=== PATIENT | female | born 1935 | race Caucasian/White ===

== ENCOUNTER 2018-03-02 18:37 | Inpatient (IN) | payer MEDICARE, BC ==
[~2018-03-02] VITALS: Ht 149.9 cm; Wt 50.8 kg
--- NOTE | 2018-03-02 18:54 | NUR ---
BIBRA FROM HOME DT RIGHT HIP PAIN RADIATING TO RIGHT KNEE, 4/10 SP TRIPPED AND FELL. PATIENT NOT IN DISTRESS. VSS
--- NOTE | 2018-03-02 20:27 | NUR ---
CALLED DR ORAL ELIZABETH ON THE PHONE WITH DR SINGER
--- NOTE | 2018-03-02 20:28 | NUR ---
CALLED [employer] ADMISSIONS DIRECTOR WAS PAGED.
[2018-03-02 20:54] LABS: BASOPHILS # (AUTO) 0.1 /CMM (0.0-0.2); BASOPHILS % (AUTO) 0.8 % (0.0-2.0); HEMATOCRIT 39 % (33-45); HEMOGLOBIN 13.1 g/dL (11.5-14.8); LYMPHOCYTES # (AUTO) 1.7 /CMM (0.8-4.8); LYMPHOCYTES % (AUTO) 17.6 % (20.0-44.0); MEAN CORPUSCULAR HGB CONC 34 g/dl (31.0-36.0); MEAN CORPUSCULAR VOLUME 86 fL (82-100); MONOCYTES # (AUTO) 0.7 /CMM (0.1-1.30); MONOCYTES % (AUTO) 6.9 % (2.0-12.0); NEUTROPHILS # (AUTO) 7.3 /CMM (1.8-8.9); NEUTROPHILS % (AUTO) 73.7 % (43.0-81.0); PLATELET COUNT (AUTO) 248 /CMM (150-450); RDW COEFFICIENT OF VARIATION 12.2 (11.5-15.0); RED BLOOD CELL COUNT(AUTO) 4.48 MIL/uL (4.0-5.2); WHITE BLOOD COUNT (AUTO) 9.9 K/uL (4.3-11.0)
--- NOTE | 2018-03-02 20:56 | NUR ---
CHANGE BED TO 328-2
--- NOTE | 2018-03-02 21:01 | NUR ---
REPORT GIVEN TO HEIDI ORTEGA
--- NOTE | 2018-03-02 21:01 | NUR ---
PATIENT WAS TAKEN TO CT
[2018-03-02 21:06] LABS: CALCIUM, SERUM 9.5 mg/dL (8.5-10.1); CARBON DIOXIDE 30 mmol/L (21-32); CHLORIDE 105 mmol/L (98-107); GLUCOSE 102 mg/dL (74-106); POTASSIUM 3.5 mmol/L (3.5-5.1); SODIUM SERUM 141 mmol/L (136-145); UREA NITROGEN, BLOOD 20 mg/dL (7-18)
[2018-03-02 21:10] LABS: INR 0.97 (0.85-1.15)
[2018-03-02 21:14] LABS: TROPONIN I < 0.017 ng/mL (0.00-0.056)
--- NOTE | 2018-03-02 21:50 | NUR ---
ADMITTED A 82 Y/O FEMALE FROM HOME WITH AN ADMITTING DX. OF S/P GROUND LEVEL FALL AND RIGHT HIP PAIN. PATIENT EVALUATED IN THE [facility] - ER AND TRANSFERRED TO MED SURG VIA GURNEY WITH 2 PERSONS ASSIST. UPON FACE TO FACE EVALUATION, PATIENT APPEARED ALERT AND ORIENTED X 4, CALM AND COOPERATIVE, NO SOB, NO ACUTE DISTRESS, BREATHING EVEN AND UNLABORED, DENIES PAIN AND DISCOMFORT, SKIN INTACT, PATIENT ASSISTED TO THE BED ZIMMERMAN FOR URINATION AND TOLERATED WELL. PATIENT IS UNDER THE CARE OF DR. OKSANA DUNCAN. ADMITTING MEDICATIONS RECONCILED BY DR. OKSANA DUNCAN NOTED AND CARRIED OUT. RESPONSIBLE CONSTITUTION PARTY AWARE OF THE ADMISSION. KEPT PATIENT CLEAN, DRY AND COMFORTABLE. ALL NEEDS ATTENDED AND MET. BED IN LOWEST POSITION. CALL LIGHT WITHIN REACH. WILL CONTINUE TO MONITOR
[2018-03-02] MEDS ORDERED: Z GUARD REMEDY 2 OZ OINT TP PRN (23:30)
[2018-03-02] MEDS ORDERED: ONDANSETRON HCL/PF 4 MG/2 ML VIAL IVP PRN (23:30)
[2018-03-02] MEDS ORDERED: MORPHINE SULFATE INJ 2 MG/ML DISP.SYRIN IV PRN (23:30)
[2018-03-02 23:33] VITALS: BP 140/76
[2018-03-02] MEDS: ZOLPIDEM TARTRATE 5 MG TABLET PO PRN (23:52)
[2018-03-03] MEDS: ACETAMINOPHEN 325 MG TABLET PO PRN ×2 (00:50→16:59)
[2018-03-03] MEDS ORDERED: AMLO2.5T3 PO (00:54)
[2018-03-03] MEDS ORDERED: SIMV20TA6 PO (00:54)
--- NOTE | 2018-03-03 05:38 | NUR ---
PATIENT REPORTED 8/10 PAIN ON RIGHT HIP BUT HESITANT TO TAKE MORPHINE ORDERED. EXPLAINED THE RISK AND BENEFITS. PATIENT REQUESTED WARM COMPRESS APPLICATION FIRST AND WILL TAKE MORPHINE WHEN THE PAIN GETS WORST. WARM COMPRESS APPLIED, PATIENT TOLERATED AND VERBALIZED RELIEF FROM PAIN. WILL CONTINUE TO MONITOR
[2018-03-03] MEDS: MAGNESIUM HYDROXIDE 30 ML UDC PO PRN (07:23)
--- NOTE | 2018-03-03 07:25 | NUR ---
RN OPENING/TELE NOTES RECEIVED PT. IN BED A&OX4. BREATHING UNLABORED ON ROOM AIR. NO S/S OF ACUTE DISTRESS. NEW IV STARTED ON LEFT FOREARM GAUGE 22. BED IS IN LOWEST, AND LOCKED POSITION. 2 SIDE RAILS UP. INSTRUCTED PT. TO USE CALL LIGHT FOR ASSISTANCE. ALL NEEDS MET. WILL CONTINUE TO ASSESS AND MONITOR. Addendum: 03/03/18 at 1906 by OSKAR SANABRIA RN CORRECTION ABOVE: PT. IS A MED/SURG PT., AND IV ACCESS IS ON THE LEFT FOREARM GAUGE 20.
--- NOTE | 2018-03-03 07:58 | NUR ---
NO SIGNIFICANT CHANGE NOTED, PATIENT STABLE, ALL DUE MEDS GIVEN ORDERED. CALL LIGHT WITHIN REACH. ENDORSED TO THE NEXT SHIFT TO CONTINUE TO MONITOR
[2018-03-03 08:00] VITALS: BP 143/95
--- NOTE | 2018-03-03 08:07 | NUR ---
RN NOTES LAB CALLED TO REPORT CRITICAL H&H 5.02/13. WILL REPORT CRITICAL LAB TO .
[2018-03-03 08:47] LABS: BASOPHILS % (AUTO) 0.4 % (0.0-2.0); EOSINOPHILS % (AUTO) 1.9 % (0.0-6.0); HEMATOCRIT 36 % (33-45); HEMOGLOBIN 12.1 g/dL (11.5-14.8); LYMPHOCYTES # (AUTO) 0.9 /CMM (0.8-4.8); LYMPHOCYTES % (AUTO) 13.2 % (20.0-44.0); MEAN CORPUSCULAR HGB CONC 34 g/dl (31.0-36.0); MEAN CORPUSCULAR VOLUME 87 fL (82-100); MONOCYTES # (AUTO) 0.6 /CMM (0.1-1.30); MONOCYTES % (AUTO) 8.4 % (2.0-12.0); NEUTROPHILS # (AUTO) 5.3 /CMM (1.8-8.9); NEUTROPHILS % (AUTO) 76.1 % (43.0-81.0); PLATELET COUNT (AUTO) 218 /CMM (150-450); RDW COEFFICIENT OF VARIATION 13.3 (11.5-15.0); RED BLOOD CELL COUNT(AUTO) 4.13 MIL/uL (4.0-5.2)
[2018-03-03 08:59] LABS: CALCIUM, SERUM 8.9 mg/dL (8.5-10.1); CARBON DIOXIDE 26 mmol/L (21-32); CHLORIDE 104 mmol/L (98-107); GLUCOSE 167 mg/dL (74-106); MAGNESIUM 2.1 mg/dL (1.8-2.4); PHOSPHORUS 3.4 mg/dL (2.5-4.9); POTASSIUM 3.7 mmol/L (3.5-5.1); SODIUM SERUM 141 mmol/L (136-145); UREA NITROGEN, BLOOD 17 mg/dL (7-18)
[2018-03-03] MEDS ORDERED: ENOXAPARIN SODIUM 40 MG/0.4 ML DISP.SYRIN SQ SCH (09:00)
[2018-03-03] MEDS ORDERED: AMLODIPINE BESYLATE 2.5 MG TABLET PO SCH (09:00)
[2018-03-03 09:20] LABS: THYROID STIMULATING HORMONE 1.784 uIU/mL (0.358-3.74)
[2018-03-03 09:33] LABS: TRIGLYCERIDES 50 mg/dL (30-150)
[2018-03-03 09:34] LABS: CHOLESTEROL 188 mg/dL (<200); HDL CHOLESTEROL 83 mg/dL (40-60); LDL 93 mg/dL (0-99)
[2018-03-03] MEDS: IV NS 0.9% 1,000 ML IV PRN ×2 (11:26→21:10)
[2018-03-03 16:00] VITALS: BP 150/90
[2018-03-03 16:17] LABS: APPEARANCE,URINE SL CLOUDY (CLEAR); BILIRUBIN,URINE NEGATIVE (NEGATIVE); BLOOD, URINE 1+ Ery/uL (NEGATIVE); COLOR,URINE YELLOW (YELLOW); KETONES,URINE NEGATIVE (NEGATIVE); LEUKOCYTE ESTERASE ,URINE NEGATIVE (NEGATIVE); NITRITE, URINE NEGATIVE (NEGATIVE); PH,URINE 7.5 (5.0-8.0); PROTEIN,URINE NEGATIVE (NEGATIVE); UGLUCOSE NEGATIVE (NEGATIVE); UROBILINOGEN,URINE 0.2 EU/dL (0.2)
[2018-03-03 17:09] LABS: BACTERIA,URINE Many /HPF (None Seen); SQUAMOUS EPITHELIAL CELL,UR Moderate /HPF (None Seen)
[2018-03-03 17:12] LABS: TRIPLE PHOSPHATE CRYSTAL,UR Moderate /HPF (None Seen)
[2018-03-03] MEDS ORDERED: AMLODIPINE BESYLATE 5 MG TABLET PO ONE (18:30)
[2018-03-03] MEDS ORDERED: KETOROLAC TROMETHAMINE INJ 30 MG/ML VIAL IV PRN ×2 (18:30)
--- NOTE | 2018-03-03 18:55 | NUR ---
RN CLOSING NOTES PT. IS IN BED A&OX4. NPO AFTER MIDNIGHT FOR SURGERY TOMORROW WITH DR. SINGER (PERCUTANEOUS SCREW FIXATION ON RIGHT FEMORAL FACTURE). PT. REFUSED TO SIGN ANESTHESIA CONSENT FORM DUE TO PT. WANTING TO CONSULT WITH ANESTHESIOLOGIST. BREATHING UNLABORED, AND EVENLY ON ROOM AIR. NO S/S OF ACUTE DISTRESS. IV FLUIDS RUNNING AT 100 ML/HR PRN VIA IV ACCESS ON LEFT FOREARM GAUGE 20. DVT PUMPS ARE ON BOTH LOWER EXTREMITIES. BED IS IN LOWEST, AND LOCKED POSITION. 2 SIDE RAILS UP. INSTRUCTED PT. TO USE CALL LIGHT FOR ASSISTANCE. ALL NEEDS MET. WILL ENDORSE REPORT TO NURSE.
--- NOTE | 2018-03-03 19:45 | NUR ---
MS RN INITIAL NOTE PT IS IN BED A/O X4 ABLE TO MAKE NEEDS KNOWN. NO SIGNS OF SOB OR DISTRESS, BREATHING EVENLY AND UNLABORED ON RA. IV ACCESS IS INTACT AND PATENT WITH NS INFUSING AT 100 ML/HR. PT IS TO BE NPO AT MIDNIGHT FOR SURGERY OF RIGHT FEMORAL FRACTURE. PT REFUSED TO SIGN ANESTHESIA CONSENT DUE TO WANTING A CONSULT WITH THE ANESTHESIOLOGIST. DENIES PAIN AT THIS TIME. BED IS IN LOW AND LOCKED POSITION, CALL LIGHT WITHIN REACH. WILL CONTINUE TO MONITOR PT
[2018-03-03 20:00] VITALS: BP 144/85
[2018-03-03] MEDS: ZOLPIDEM TARTRATE 5 MG TABLET PO PRN (21:02)
[2018-03-03] MEDS: SIMVASTATIN 20 MG TABLET PO SCH (21:04)
--- NOTE | 2018-03-04 06:43 | NUR ---
MS RN CLOSING NOTE PT IS IN BED SLEEPING, EASILY AROUSED. NO SIGNS OF SOB OR DISTRESS, BREATHING EVENLY AND UNLABORED ON RA. PT SLEPT THROUGHOUT THE NIGHT. NPO AFTER MIDNIGHT PENDING SX AT 1 PM. NO ACUTE CHANGES THROUGHOUT THE SHIFT. BED IS IN LOW AND LOCKED POSITION, CALL LIGHT WITHIN REACH. WILL ENDORSE TO DAYSHIFT.
[2018-03-04 07:07] LABS: BASOPHILS % (AUTO) 0.5 % (0.0-2.0); EOSINOPHILS % (AUTO) 2.3 % (0.0-6.0); HEMATOCRIT 35 % (33-45); HEMOGLOBIN 12.2 g/dL (11.5-14.8); LYMPHOCYTES # (AUTO) 1.3 /CMM (0.8-4.8); MEAN CORPUSCULAR HGB CONC 35 g/dl (31.0-36.0); MEAN CORPUSCULAR VOLUME 87 fL (82-100); MONOCYTES # (AUTO) 0.5 /CMM (0.1-1.30); MONOCYTES % (AUTO) 8.2 % (2.0-12.0); NEUTROPHILS # (AUTO) 4.7 /CMM (1.8-8.9); PLATELET COUNT (AUTO) 215 /CMM (150-450); RDW COEFFICIENT OF VARIATION 13.3 (11.5-15.0); RED BLOOD CELL COUNT(AUTO) 4.07 MIL/uL (4.0-5.2); WHITE BLOOD COUNT (AUTO) 6.7 K/uL (4.3-11.0)
[2018-03-04 07:53] LABS: ALANINE AMINOTRANSFERASE 19 U/L (12-78); ALKALINE PHOSPHATASE 67 U/L (46-116); ASPARTATE AMINOTRANSFERASE 24 U/L (15-37); BILIRUBIN,TOTAL 0.7 mg/dL (0.2-1.0); CALCIUM, SERUM 8.6 mg/dL (8.5-10.1); CARBON DIOXIDE 26 mmol/L (21-32); CHLORIDE 105 mmol/L (98-107); CREATININE 0.8 mg/dL (0.6-1.3); GLUCOSE 107 mg/dL (74-106); MAGNESIUM 2.1 mg/dL (1.8-2.4); PHOSPHORUS 3.7 mg/dL (2.5-4.9); POTASSIUM 3.7 mmol/L (3.5-5.1); SODIUM SERUM 140 mmol/L (136-145); TOTAL PROTEIN, SERUM 6.5 g/dL (6.4-8.2); UREA NITROGEN, BLOOD 12 mg/dL (7-18)
[2018-03-04 08:00] VITALS: BP 146/84
--- NOTE | 2018-03-04 08:05 | NUR ---
ms rn received on bed,awake,alert,oriented x4,not in any formof distress, respirations even and unlabored,no sob noted, lungs are clear,abdomen soft,positive bowel sounds, denies pain at this time, came w/ right hip fracture, for surgery today.
[2018-03-04] MEDS: AMLODIPINE BESYLATE 2.5 MG TABLET PO SCH (09:00)
--- NOTE | 2018-03-04 09:00 | NUR ---
RN ON NPO AT THIS TIME, FOR RIGHT HIP SURGERY TODAY AT 1 PM.
--- NOTE | 2018-03-04 12:45 | NUR ---
MS RN WENT DOWN FOR PROCEDURE,ALL NEEDS ATTENDED.
[2018-03-04] MEDS ORDERED: BACITRACIN 50000 UNITS/VIAL ONE (13:00)
[2018-03-04] MEDS ORDERED: MIDAZOLAM HCL 2 MG/2ML VIAL ONE (13:43)
[2018-03-04] MEDS ORDERED: VANCOMYCIN 1 GM VIAL ONE (13:51)
[2018-03-04] MEDS ORDERED: BUPIVACAINE 0.25% 75 MG/30 ML VIAL ONE (15:47)
[2018-03-04] MEDS ORDERED: MORPHINE SULFATE INJ 4 MG/ML DISP.SYRIN ONE (16:32)
[2018-03-04] MEDS ORDERED: MORPHINE SULFATE INJ 4 MG/ML DISP.SYRIN IV PRN (17:00)
--- NOTE | 2018-03-04 17:42 | NUR ---
MS RN PATIENT CAME BACK FROM SURGERY OF RIGHT HIP, AWAKE,ALERT,ORIENTED X4,NOT IN ANY FORM OF DISTRESS, RESPIRATIONS EVEN AND UNLABORED,NO SOB NOTED, SURGERY SITE COVERED W/ DRY DRESSING, NO S/S OF BLEEDING AT THIS TIME,PATIENT DENIES PAIN AT THIS MOMENT, FAMILY AT BEDSIDE.V/S STABLE.
[2018-03-04] MEDS ORDERED: VANCOMYCIN 1 GM in IV D5W 250ml IV SCH (18:00)
--- NOTE | 2018-03-04 19:50 | NUR ---
MS RN INITIAL NOTE PT IS IN BED RESTING, S/P PERCUTANEOUS SCREW FIXATION. DENIES PAIN AT THIS TIME. NO SIGNS OF SOB OR DISTRESS, BREATHING EVENLY AND UNLABORED ON RA. IV ACCESS IS INTACT AND PATENT. PT IS REFUSING VANCO DUE TO IT MAKING HER FEEL NAUSEOUS, PT STATES THAT ONLY CIPRO IS OKAY FOR HER. WILL CONTACT THE ON-CALL. BED IS IN LOW AND LOCKED POSITION, CALL LIGHT WITHIN REACH. WILL CONTINUE TO MONITOR PT
[2018-03-04 20:00] VITALS: BP 119/67
--- NOTE | 2018-03-04 20:19 | NUR ---
MS RN NOTE CONTACTED [facility] BUT[facility] MELTER IN REGARDS TO THE ABX. SPOKE WITH WARPING MILL OPERATOR MARIBELL Underwood. SHE SAID " I WILL LOOK INTO IT AND CALL YOU BACK" AWAITING CALL BACK
[2018-03-04] MEDS: SIMVASTATIN 20 MG TABLET PO SCH (21:05)
[2018-03-04] MEDS: ENOXAPARIN SODIUM 40 MG/0.4 ML DISP.SYRIN SQ SCH (21:06)
--- NOTE | 2018-03-04 21:40 | NUR ---
MS RN NOTE EPIC GLOST TILE SORTER D/C'D VANCO ORDER AND HAD NO OTHER ORDERS DUE TO PTS ALLERGIES. EPIC INTERPRETER TRANSLATOR SAID TO DEFER TO SURGEON FOR ORDERS. WILL CONTACT DR SINGER GLOST TILE SORTER
--- NOTE | 2018-03-04 22:20 | NUR ---
MS RN NOTE CONTACTED DR SINGER [employer]ER [employer]. STEAM AND G[employer] TURBINE ASSEMBLER ORDERED CLINDAMYCIN 900 MH IV ONCE TO BE GIVEN Q12H AFTER VANCO.
--- NOTE | 2018-03-04 22:45 | NUR ---
MS RN NOTE SPOKE WITH PT IN REGARDS TO THE CHANGE OF ANTIBIOTIC. PT CONTINUES TO REFUSE STATING SHE IS UNSURE WHICH ANTIBIOTIC SHE IS ABLE TO TAKE WITHOUT FEELING SICK. EDUCATION WAS GIVEN, EXPLAINED THE NEED FOR AN ANTIBIOTIC POST-OP. PT CONTINUES TO REFUSE ANTIBIOTICS.
[2018-03-04] MEDS: ZOLPIDEM TARTRATE 5 MG TABLET PO PRN (23:03)
[2018-03-05] MEDS ORDERED: CLINDAMYCIN IV RTU IN D5W 900 MG/50 ML PIGGYBACK IV ONE (06:00)
--- NOTE | 2018-03-05 06:57 | NUR ---
MS RN CLOSING NOTE PT IS IN BED SLEEPING, EASILY AROUSED. NO SIGNS OF SOB OR DISTRESS. DENIES PAIN. BED IS IN LOW AND LOCKED POSITION, CALL LIGHT WITHIN REACH. WILL ENDORSE TO DAYSHIFT
[2018-03-05 08:00] VITALS: BP 131/74
[2018-03-05] MEDS ORDERED: MORPHINE SULFATE INJ 4 MG/ML DISP.SYRIN IV PRN (08:00)
--- NOTE | 2018-03-05 08:00 | NUR ---
ms rn received on bed, awake,alert,oriented x4,not in any form of distress, respirations even and unlabored,no sob noted, lungs are clear,abdomen soft,positive bowel sounds,denies pain at this time, ellison to gravity intact w/ yellowish urine output, s/p surgery to right hip, w/ dressing on the site, clean and dry,no evidence of bleeding ,will monitor patient.
[2018-03-05 08:10] LABS: HEMATOCRIT 33 % (33-45); HEMOGLOBIN 11.2 g/dL (11.5-14.8); LYMPHOCYTES # (AUTO) 0.7 /CMM (0.8-4.8); LYMPHOCYTES % (AUTO) 5.2 % (20.0-44.0); MEAN CORPUSCULAR HGB CONC 34 g/dl (31.0-36.0); MEAN CORPUSCULAR VOLUME 88 fL (82-100); MONOCYTES # (AUTO) 0.7 /CMM (0.1-1.30); MONOCYTES % (AUTO) 5.2 % (2.0-12.0); NEUTROPHILS # (AUTO) 12.1 /CMM (1.8-8.9); NEUTROPHILS % (AUTO) 89.6 % (43.0-81.0); PLATELET COUNT (AUTO) 220 /CMM (150-450); RDW COEFFICIENT OF VARIATION 13.3 (11.5-15.0); RED BLOOD CELL COUNT(AUTO) 3.73 MIL/uL (4.0-5.2); WHITE BLOOD COUNT (AUTO) 13.5 K/uL (4.3-11.0)
[2018-03-05 08:37] LABS: CALCIUM, SERUM 8.6 mg/dL (8.5-10.1); CARBON DIOXIDE 28 mmol/L (21-32); CHLORIDE 104 mmol/L (98-107); CREATININE 0.9 mg/dL (0.6-1.3); GLUCOSE 123 mg/dL (74-106); MAGNESIUM 1.9 mg/dL (1.8-2.4); PHOSPHORUS 3.6 mg/dL (2.5-4.9); SODIUM SERUM 140 mmol/L (136-145); UREA NITROGEN, BLOOD 16 mg/dL (7-18)
[2018-03-05 09:17] LABS: ALANINE AMINOTRANSFERASE 18 U/L (12-78); ALKALINE PHOSPHATASE 61 U/L (46-116); ASPARTATE AMINOTRANSFERASE 24 U/L (15-37); BILIRUBIN,TOTAL 0.4 mg/dL (0.2-1.0); TOTAL PROTEIN, SERUM 6.3 g/dL (6.4-8.2)
--- NOTE | 2018-03-05 09:30 | NUR ---
ms bolton breakfast served,due meds given,tolerated well.
[2018-03-05] MEDS: AMLODIPINE BESYLATE 2.5 MG TABLET PO SCH (09:50)
[2018-03-05 10:32] LABS: ALBUMIN 2.8 g/dL (3.4-5.0)
[2018-03-05] MEDS: TRAMADOL HCL 50 MG TABLET PO PRN ×3 (10:34→22:20)
[2018-03-05] MEDS ORDERED: VANCOMYCIN 1 GM in IV NS 0.9% 250 ML IV ONE (12:00)
[2018-03-05 16:11] VITALS: BP 127/71
--- NOTE | 2018-03-05 19:30 | NUR ---
RN NOTES RECEIVED PT. AWAKE ON BED, A/OX4, DRESSING ON THE RIGHT HIP DRY AND INTACT, F/C DRAINING CLEAR YELLOW URINE, CALL LIGHT WITHIN REACH, [id number], CONTINUE TO MONITOR
[2018-03-05 20:00] VITALS: BP 139/73
[2018-03-05] MEDS: ENOXAPARIN SODIUM 40 MG/0.4 ML DISP.SYRIN SQ SCH (21:37)
[2018-03-05] MEDS: SIMVASTATIN 20 MG TABLET PO SCH (21:37)
[2018-03-05] MEDS: MAGNESIUM HYDROXIDE 30 ML UDC PO PRN (21:41)
--- NOTE | 2018-03-05 22:22 | NUR ---
RN NOTES PT. ASKED FOR TRAMADOL, TRAMADOL 50MG PO GIVEN ORDERED, V/S STABLE
[2018-03-05] MEDS: ZOLPIDEM TARTRATE 5 MG TABLET PO PRN (23:27)
--- NOTE | 2018-03-05 23:31 | NUR ---
RN NOTES PT. ASKED FOR SLEEPING PILL-AMBIEN 5 MG PO GIVEN ORDERED, V/S STABLE
--- NOTE | 2018-03-06 06:24 | NUR ---
RN NOTES AWAKE, F/C DRAINING CLEAR YELLOW URINE, MORNING CARE RENDERED, DRESSING ON THE RIGHT HIP DRY AND INTACT, CALL LIGHT WITHIN REACH, [id number], PT NEEDS ATTENDED
[2018-03-06 08:00] VITALS: BP 129/73
--- NOTE | 2018-03-06 08:00 | NUR ---
MS RN RECEIVED ON BED, AWAKE,ALERT,ORIENTED X4,NOT IN ANYFORM OF DISTRESS, RESPIRATIONS EVEN AND UNLABORED, NO SOB NOTED, LUNGS ARE CLEAR,ABDOMEN SOFT,POSITIVE BOWEL SOUNDS, DENIES PAIN AT THIS TIME,ALL NEEDS ATTENDED.
[2018-03-06] MEDS: TRAMADOL HCL 50 MG TABLET PO PRN ×3 (08:35→17:07)
--- NOTE | 2018-03-06 09:00 | NUR ---
MS RN BREAKFAST SERVED,DUE MEDS GIVEN,TOLERATED WELL, WILL MONITOR PATIENT'S CONDITION.PATIENT PREFER TO TAKE [facility] LATER TODAY.
[2018-03-06 10:35] LABS: BASOPHILS % (AUTO) 0.1 % (0.0-2.0); EOSINOPHILS % (AUTO) 0.9 % (0.0-6.0); HEMATOCRIT 30 % (33-45); HEMOGLOBIN 10.3 g/dL (11.5-14.8); LYMPHOCYTES # (AUTO) 1.9 /CMM (0.8-4.8); LYMPHOCYTES % (AUTO) 20.3 % (20.0-44.0); MEAN CORPUSCULAR HGB CONC 34 g/dl (31.0-36.0); MEAN CORPUSCULAR VOLUME 88 fL (82-100); MONOCYTES # (AUTO) 0.8 /CMM (0.1-1.30); NEUTROPHILS # (AUTO) 6.4 /CMM (1.8-8.9); NEUTROPHILS % (AUTO) 69.7 % (43.0-81.0); PLATELET COUNT (AUTO) 204 /CMM (150-450); RDW COEFFICIENT OF VARIATION 13.5 (11.5-15.0); RED BLOOD CELL COUNT(AUTO) 3.43 MIL/uL (4.0-5.2); WHITE BLOOD COUNT (AUTO) 9.2 K/uL (4.3-11.0)
[2018-03-06 10:51] LABS: ALANINE AMINOTRANSFERASE 22 U/L (12-78); ALBUMIN 2.7 g/dL (3.4-5.0); ALKALINE PHOSPHATASE 55 U/L (46-116); ASPARTATE AMINOTRANSFERASE 23 U/L (15-37); BILIRUBIN,TOTAL 0.4 mg/dL (0.2-1.0); CALCIUM, SERUM 8.3 mg/dL (8.5-10.1); CARBON DIOXIDE 31 mmol/L (21-32); CHLORIDE 101 mmol/L (98-107); CREATININE 0.9 mg/dL (0.6-1.3); GLUCOSE 135 mg/dL (74-106); MAGNESIUM 1.7 mg/dL (1.8-2.4); PHOSPHORUS 3.3 mg/dL (2.5-4.9); POTASSIUM 3.4 mmol/L (3.5-5.1); SODIUM SERUM 138 mmol/L (136-145); TOTAL PROTEIN, SERUM 5.9 g/dL (6.4-8.2); UREA NITROGEN, BLOOD 18 mg/dL (7-18)
[2018-03-06] MEDS: AMLODIPINE BESYLATE 2.5 MG TABLET PO SCH (12:39)
--- NOTE | 2018-03-06 13:00 | NUR ---
MS RN WAS SEEN BY SURGEON, WILL DE DISCHARGE TOMORROW.
[2018-03-06 16:00] VITALS: BP 115/70
[2018-03-06] MEDS: CHOLECALCIFEROL 1,000 UNIT TABLET (VIT D3) PO SCH (17:35)
--- NOTE | 2018-03-06 18:08 | NUR ---
MS RN ON BED, NO DISTRESS NOTED,ALL NEEDS ATTENDED.
--- NOTE | 2018-03-06 19:30 | NUR ---
RN NOTES RECEIVED PT. AWAKE ON BED, A/OX4, DRESSING ON THE RIGHT HIP DRY AND INTACT, DENIES PAIN, NO SOB, CALL LIGHT WITHIN REACH, [id number]. CONTINUE TO MONITOR
[2018-03-06] MEDS: MAGNESIUM HYDROXIDE 30 ML UDC PO PRN (19:59)
[2018-03-06 20:00] VITALS: BP_SYST 121; BP_SYST 133; BP_DIAS 70; BP_DIAS 72
--- NOTE | 2018-03-06 20:02 | NUR ---
RN NOTES PT ASKED FOR MILK OF MAGNESIA, MOM 30ML PO GIVEN ORDERED
[2018-03-06] MEDS: SIMVASTATIN 20 MG TABLET PO SCH (21:21)
[2018-03-06] MEDS: ENOXAPARIN SODIUM 40 MG/0.4 ML DISP.SYRIN SQ SCH (21:21)
--- NOTE | 2018-03-06 22:30 | NUR ---
MS RN NOTES RECEIVED REPORT FROM RAQUEL GORDON,PATIENT S/P FALL,WITH RIGHT HIP FRACTURE,S/P PERCUTANEOUS SCREW FIXATION ON 03/04/2018.SLEEPING AT THIS TIME.IVF INFUSING LEFT FORE VIA IV PUMP.FOR D/C PLANNING TOMORROW PER RUPERT ACNP.
--- NOTE | 2018-03-06 23:05 | NUR ---
RN NOTES REPORT GIVEN TO ANOTHER NURSE , PT IS SLEEPING BUT AROUSABLE, DENIES PAIN, NO SOB, CALL LIGHT WITHIN REACH, [id number], CONTINUE TO MONITOR
[2018-03-07] MEDS: TRAMADOL HCL 50 MG TABLET PO PRN ×3 (00:33→16:01)
--- NOTE | 2018-03-07 00:35 | NUR ---
RN NOTES COMPLAINED OF RIGHT HIP PAIN- ULTRAM 50MG PO GIVEN ORDERED, V/S STABLE
--- NOTE | 2018-03-07 06:36 | NUR ---
MS RN NOTES PAIN MANAGEMENT EFFECTIVE.REPOSITION PER PROTOCOL.CALL LIGHT IN REACH NEEDS ATTENDED.[facility],PRESCRIPTION ON CHART.
--- NOTE | 2018-03-07 07:35 | NUR ---
RN OPENING NOTES RECEIVED PT. PT IS STABLE AND RESTING IN BED. NO S/S OF RESP DISTRESS OR SOB. NO C/O PAIN AT THIS TIME. PT SCHEDULED FOR POSSIBLE DC TODAY TO [facility], [place]. IV ACCESS IN PLACE AND PATENT. SAFETY MEASURES IN PLACE, CALL LIGHT IN REACH. WILL CONTINUE TO MONITOR.
[2018-03-07 08:00] VITALS: BP 126/65
[2018-03-07] MEDS: AMLODIPINE BESYLATE 2.5 MG TABLET PO SCH (09:00)
[2018-03-07] MEDS: CHOLECALCIFEROL 1,000 UNIT TABLET (VIT D3) PO SCH (09:30)
[2018-03-07] MEDS: Magnesium 1GM/D5W 100ML PREMIX 100 ML IV SCH ×2 (09:30→11:47)
[2018-03-07] MEDS: POTASSIUM CHLORIDE 20 MEQ TAB.PRT.SR PO SCH ×2 (09:31→11:47)
--- NOTE | 2018-03-07 16:00 | NUR ---
DISCHARGE NOTE PT DISCHARGED TO [facility]. DISCHARGE TEACHING PERFORMED, PT VERBALIZES UNDERSTANDING. DISCHARGE PAPERWORK, BELONGINGS SHEET SIGNED, COPIED, AND PLACED IN CHART. IV ACCESS AND ID BAND REMOVED. PT GIVEN TRAMADOL PRIOR TO TRANSPORTATION FOR PAIN UPON TRANSFER. REPORT CALLED AND GIVEN TO SHANTELL OF [facility]. PRESCRIPTIONS GIVEN COPIED, PLACED IN CHART, WITH ORIGINALS GIVEN TO PT. PT LEFT HOSPITAL IN AMBULANCE WITH TRAINING SPECIALIST TRANSPORTATION.
== END 2018-03-07 16:12 | DRG 470 ==
LOC: ER 18:39 → MED 21:12
PROVIDERS: ADMIT Nurse Practitioner Acute Care; ATTEND Nurse Practitioner Acute Care
PROC: 0SR90JZ Replacement of Right Hip Joint with Synthetic Substitute, Open Approach (ICD-10-PCS; principal; 2018-03-04 14:19)
DX: S72.011A Unspecified intracapsular fracture of right femur, initial encounter for closed fracture (principal); E78.5 Hyperlipidemia, unspecified; H26.9 Unspecified cataract; I10 Essential (primary) hypertension; W01.0XXA Fall on same level from slipping, tripping and stumbling without subsequent striking against object, initial encounter; Y92.009 Unspecified place in unspecified non-institutional (private) residence as the place of occurrence of the external cause; Z96.651 Presence of right artificial knee joint; Z98.890 Other specified postprocedural states; Z79.899 Other long term (current) drug therapy
CPT/HCPCS: 36415; 71045-TC; 73501; 73502; 73552; 73700-TC; 80048-TC; 80053-TC; 80061-TC; 81000-TC; 82306; 83735-TC; 84100-TC; 84439-TC; 84443-TC; 84484-TC; 85025-TC; 85730-TC; 86850-TC; 87081-TC; 87086-TC; 93307-TC; 97110-TC; 97116-TC; 97530-TC; A4606; A6209; A6402; C1713; J1100; J1650; J1885; J2250; J2270; J2405; J2704; J3370; J3475; J3490; J7030; J7050; J7060; Z7610